=== PATIENT | female | born 1995 | race Caucasian/White ===

== ENCOUNTER → 2022-03-06 | Outpatient (CLI) ==
[2022-03-06 16:46] LABS: BASOPHILS % (AUTO) 1 % (0-10); EOSINOPHILS # (AUTO) 0.1 10^3/uL (0.0-0.3); EOSINOPHILS % (AUTO) 1 % (0-10); HEMATOCRIT 34 % (35-52); HEMOGLOBIN 11.1 g/dL (11.5-16.0); LYMPHOCYTES # (AUTO) 2.2 10^3/uL (1.0-4.0); LYMPHOCYTES % (AUTO) 27 % (12-44); MEAN CORPUSCULAR HEMOGLOBIN 30 pg (25-34); MEAN CORPUSCULAR HGB CONC 33 g/dL (32-36); MEAN CORPUSCULAR VOLUME 92 fL (80-99); MONOCYTES # (AUTO) 0.4 10^3/uL (0.0-1.0); MONOCYTES % (AUTO) 5 % (0-12); NEUTROPHILS # (AUTO) 5.3 10^3/uL (1.8-7.8); NEUTROPHILS % (AUTO) 66 % (42-75); PLATELET COUNT 226 10^3/uL (130-400); WHITE BLOOD COUNT 8.1 10^3/uL (4.3-11.0)
[2022-03-06 16:57] LABS: ALBUMIN 4.1 GM/DL (3.2-4.5); BILIRUBIN,TOTAL 0.3 MG/DL (0.1-1.0); CALCIUM 9.2 MG/DL (8.5-10.1); CREATININE SERUM 0.67 MG/DL (0.60-1.30); TOTAL PROTEIN 6.5 GM/DL (6.4-8.2)
[2022-03-06 17:19] LABS: FREE T4 (FREE THYROXINE) 1.1 NG/DL (0.70-1.48)
== END ==
LOC: LABNPT 16:32
PROVIDERS: ATTEND Obstetrics & Gynecology
DX: Z36.9 Encounter for antenatal screening, unspecified (principal); Z11.3 Encounter for screening for infections with a predominantly sexual mode of transmission
CPT/HCPCS: 80053; 84439; 84443; 85025; 86703; 86762; 86780; 86850; 86900; 86901; 87088; 87340; 87491; 87591

== ENCOUNTER → 2022-05-21 | Outpatient (CLI) | payer MEDICAID ==
--- NOTE | 2022-05-21 17:53 | Diagnostic Imaging Report ---
INDICATION: patient, survey. TECHNIQUE: Multiple real-time grayscale images were obtained over the gravid uterus. COMPARISON: None. FINDINGS: A single live intrauterine fetus is seen measuring 20 weeks 3 days by composite measurements. The fetus is in breech presentation at this time. Cervical length is 5.3 cm. Distance from the placental tip to the internal os was 3 cm. Placenta is posterior with no evidence of previa. Amniotic fluid is qualitatively normal. heart rate is 149 bpm. Maternal adnexa show no free fluid. survey demonstrates normal-appearing kidneys and bladder. Normal-appearing stomach seen. Intracranial ventricles are nondilated. Four-chamber heart view appear unremarkable. Three-vessel cord and cord insertion appear unremarkable. Views of the spine appear normal. Biometrical measurements are as follows: Biparietal 4.88 cm, age 20 weeks 6 days. Head circumference 18.07 cm, age 20 weeks 4 days. Abdominal circumference 14.64 cm, age 20 weeks 0 days. Femur length 3.23 cm, age 20 weeks 1 days. Sonographic estimate age: 20 weeks 3 days. Sonographic estimated date of delivery: 10/05/2022. Estimated Weight: 330 gm (+/- 48 gm). LMP percentile: 33%. heart rate: 149 beats per minute. number: 1 of 1. IMPRESSION: Single live intrauterine fetus measuring 20 weeks 3 days in size. There was no detectable abnormality. Dictated by: Dictated on workstation # [id number]
== END ==
LOC: RAD 14:00
PROVIDERS: ATTEND Obstetrics & Gynecology
DX: Z36.9 Encounter for antenatal screening, unspecified (principal); Z3A.20 20 weeks gestation of pregnancy
CPT/HCPCS: 76805